=== PATIENT | male | born 1960 | race Caucasian/White ===

== ENCOUNTER 2024-09-25 08:06 | Emergency (ER) | payer BC ==
[2024-09-25 08:17] VITALS: TEMP 97.4
[2024-09-25] MEDS: FLUORESCEIN STRIPS 1 MG STRIP LEFT EYE ONE (08:45)
[2024-09-25] MEDS: PROPARACAINE 0.5% OPHTH DROPS 15 ML BTL LEFT EYE STA (08:45)
[2024-09-25] MEDS: HYDROcodone/APAP 10-325MG 1 EACH TAB PO ONE (09:01)
--- NOTE | 2024-09-25 10:12 | ED ---
Eye Problem HPI - General Chief complaint: Eye Problems Stated complaint: L Eye Problem Time Seen by Provider: 09/25/24 08:10 Source: patient Mode of arrival: ambulatory Limitations: no limitations - History of Present Illness Initial comments: 63-year-old man presents to the emergency department reporting left eye discomfort. States that he was working outside yesterday when he accidentally got poked in the eye with a stick. He has had some swelling and redness. He admits to double vision. Denies blurred vision. Has pain with movement to the left eye. When he covers his right eye, he can see normally out of the affected eye. Patient is on Coumadin. He just had his levels checked and they were therapeutic at 2. He has been taking aspirin at home for the pain. Denies any eye discharge. No curtain loss of vision. No other alleviating, precipitating leaving factors - Related Data Previous Rx's Medication Instructions Recorded HYDROcodone/APAP 10-325MG [[employer] 1 tab PO Q6HR PRN 3 Days #12 tab 09/25/24 10-325] Ofloxacin 0.3% Ophth Soln [Ocuflox 1 drops LEFT EAR QID #10 ml 09/25/24 Ophth Soln] Allergies Allergy/AdvReac Type Severity Reaction Status Date / Time No Known Allergies Allergy Verified 09/25/24 08:17 Review of Systems ROS Statement: Those systems with pertinent positive or pertinent negative responses have been documented in the HPI. ROS Other: All systems not noted in ROS Statement are negative. Past Medical History Past Medical History: Deep Vein Thrombosis (DVT) History of Any Multi-Drug Resistant Organisms: None Reported Past Surgical History: No Surgical Hx Reported Past Psychological History: No Psychological Hx Reported Smoking Status: Current some day smoker Past Alcohol Use History: Occasional Past Drug Use History: None Reported General Exam Limitations: no limitations General appearance: alert, in no apparent distress Head exam: Present: atraumatic, normocephalic, normal inspection Eye exam: Present: PERRL (No teardrop shaped pupil. Negative Jairo sign), EOMI, other (Patient has subconjunctival hemorrhage on the lateral aspect of the left eye. Normal pupil which is equally reactive to light bilaterally. Extraocular muscles are intact) ENT exam: Present: normal exam, mucous membranes moist Respiratory exam: Present: normal lung sounds bilaterally. Absent: respiratory distress, wheezes, rales, rhonchi, stridor Cardiovascular Exam: Present: regular rate, normal rhythm, normal heart sounds. Absent: systolic murmur, diastolic murmur, rubs, gallop, clicks Neurological exam: Present: alert, oriented X3, CN II-XII intact Psychiatric exam: Present: normal affect, normal mood Course Vital Signs 09/25/24 09/25/24 08:09 10:39 Temperature 97.4 F L Pulse Rate 70 59 L Respiratory 20 18 Rate Blood Pressure 135/78 104/62 O2 Sat by Pulse 97 97 Oximetry Medical Decision Making - Medical Decision Making Was pt. sent in by a medical professional or institution (, LILI, COMPUTER PROJECT MANAGER, urgent care, hospital, or retirement...) When possible be specific @ -No Did you speak to anyone other than the patient for history (EMS, parent, family, police, friend...)? What history was obtained from this source @ -No Did you review nursing and triage notes (agree or disagree)? Why? @ -I reviewed and agree with nursing and triage notes Were old charts reviewed (outside hosp., previous admission, EMS record, old EKG, old radiological studies, urgent care reports/EKG's, retirement records)? Report findings @ -No old charts were reviewed Differential Diagnosis (chest pain, altered mental status, abdominal pain women, abdominal pain men, vaginal bleeding, weakness, fever, dyspnea, syncope, headache, dizziness, GI bleed, back pain, seizure, CVA, palpatations, mental health, musculoskeletal)? @ -Hyphema, hypopyon, globe rupture, subconjunctival hemorrhage EKG interpreted by me (3pts min.). @ -Not done X-rays interpreted by me (1pt min.). @ -None done CT interpreted by me (1pt min.). @ -None done U/S interpreted by me (1pt. min.). @ -Bedside ultrasound completed which demonstrates no retinal detachment What testing was considered but not performed or refused? (CT, X-rays, U/S, labs)? Why? @ -CT brain however patient refused What meds were considered but not given or refused? Why? @ -None Did you discuss the management of the patient with other professionals (professionals i.e. , LILI, COMPUTER PROJECT MANAGER, lab, RT, psych nurse, social media community manager, rn progressive care unit, teacher, community liaison officer, case resource manager)? Give summary @ -No Was smoking cessation discussed for >3mins.? @ -No Was critical care preformed (if so, how long)? @ -No Were there social determinants of health that impacted care today? How? (Homelessness, low income, unemployed, alcoholism, drug addiction, transportation, low edu. Level, literacy, decrease access to med. care, senior living, rehab)? @ -No Was there de-escalation of care discussed even if they declined (Discuss DNR or withdrawal of care, Hospice)? DNR status @ -No What co-morbidities impacted this encounter? (DM, HTN, Smoking, COPD, CAD, Cancer, CVA, ARF, Chemo, Hep., AIDS, mental health diagnosis, sleep apnea, morbid obesity)? @ -None Was patient admitted / discharged? Hospital course, mention meds given and route, prescriptions, significant lab abnormalities, going to OR and other pertinent info. @ -Upon arrival patient seen and evaluated in bed 30. Thorough history and physical exam was performed. Patient's eye is stained. No signs of rupture. Pressures are obtained and are 13-15 in the right eye and 12-13 in the left eye. He does have equal visual acuity with no visual loss in the left eye. Results are discussed with patient. I did recommend testing his INR however patient refused as he just had it tested. I did perform a bedside ultrasound which did not show any retinal detachment. I did conclude my results with the patient. Informed him that reevaluation of the eye is very limited. He will require evaluation by an rigger third however this may be completed within the next 24 to 48 hours as I am not concerned for globe rupture and visual acuity is normal. I will place the patient on antibiotic eyedrops. He is to monitor for any new or worsening symptoms. He has a low threshold for return. Patient understood my limitations in the ER. He was agreeable to follow-up within the next 24 to 48 hours. Patient discharged home stable condition Undiagnosed new problem with uncertain prognosis? @ -No Drug Therapy requiring intensive monitoring for toxicity (Heparin, Nitro, Insulin, Cardizem)? @ -No Were any procedures done? @ -No Diagnosis/symptom? @ -Subconjunctival hemorrhage left eye, left eye blunt trauma, Coumadin coagulopathy Acute, or Chronic, or Acute on Chronic? @ -Acute Uncomplicated (without systemic symptoms) or Complicated (systemic symptoms)? @ -Complicated Side effects of treatment? @ -No Exacerbation, Progression, or Severe Exacerbation? @ -No Poses a threat to life or bodily function? How? (Chest pain, [place], [place], pneumonia, PE, COPD, DKA, ARF, appy, cholecystitis, CVA, Diverticulitis, Homicidal, Suicidal, threat to staff... and all critical care pts) @ -No Disposition Clinical Impression: Subconjunctival hemorrhage Disposition: HOME SELF-CARE Condition: Stable Instructions (If sedation given, give patient instructions): Subconjunctival Hemorrhage (ED) Additional Instructions: Please see an rigger third on Friday for re-evaluation. Please return for any new or worsening symptoms. Take the [employer] as needed. Monitor the look of your eye. Prescriptions: HYDROcodone/APAP 10-325MG [[employer] 10-325] 1 tab PO Q6HR PRN 3 Days #12 tab PRN Reason: Pain Ofloxacin 0.3% Ophth Soln [Ocuflox Ophth Soln] 1 drops LEFT EAR QID #10 ml Is patient prescribed a controlled substance at d/c from ED?: Yes When asked, does pt state using other controlled substances?: No If prescribed controlled substance>3 days was MAPS reviewed?: Prescribed <3 Days If opioid is for acute pain is fill amount 7 days or less?: Yes Referrals: Nonstaff,Physician [Primary Care Provider] - 1-2 days Time of Disposition: 10:14
[2024-09-25 10:40] VITALS: BP 104/62; PULSE 59; RESP 18
== END 2024-09-25 10:42 | disposition home or self-care (01) ==
LOC: EC 08:06
DX: H11.32 Conjunctival hemorrhage, left eye (principal); F17.200 Nicotine dependence, unspecified, uncomplicated
CPT/HCPCS: 99283